=== PATIENT | female | born 1990 | race Caucasian/White ===

== ENCOUNTER 2016-11-24 | Emergency (ER) | payer MEDICAID | END 2016-11-24 17:43 | disposition home or self-care (01) ==

== ENCOUNTER 2016-11-25 12:40 | Emergency (ER) | payer MEDICAID | END 2016-11-25 13:39 | disposition home or self-care (01) | DX: T81.30XA Disruption of wound, unspecified, initial encounter (principal); Y83.8 Other surgical procedures as the cause of abnormal reaction of the patient, or of later complication, without mention of misadventure at the time of the procedure; F17.200 Nicotine dependence, unspecified, uncomplicated ==

== ENCOUNTER 2016-12-08 16:57 | Emergency (ER) | payer MEDICAID ==
[2016-12-08] MEDS ORDERED: HYDROcod/ACETAM 5/325 MG TABLET PO STA (19:00)
[2016-12-08] MEDS ORDERED: HYDROcod/ACETAM 5/325 MG TABLET ONE (19:13)
== END 2016-12-08 19:18 | disposition home or self-care (01) ==
DX: K02.9 Dental caries, unspecified (principal); F17.200 Nicotine dependence, unspecified, uncomplicated
CPT/HCPCS: 99282; 99283; A9270

== ENCOUNTER 2018-02-14 08:00 | Outpatient (CLI) | payer MEDICAID ==
[2018-02-14 19:19] LABS: BILIRUBIN,URINE NEGATIVE (NEGATIVE); GLUCOSE, URINE (UA) NEGATIVE (NEGATIVE); KETONES,URINE (UA) NEGATIVE (NEGATIVE); LEUKOCYTE ESTERASE, URINE NEGATIVE (NEGATIVE); NITRITE,URINE NEGATIVE (NEGATIVE); OCCULT BLOOD,URINE NEGATIVE (NEGATIVE); PROTEIN,URINE NEGATIVE (NEGATIVE); UROBILINOGEN,URINE 0.2 (NORMAL) E.U./dL (NORMAL)
[2018-02-14 19:23] LABS: BASOPHILS # (AUTO) 0.1 10^3/uL (0.0-0.1); BASOPHILS % (AUTO) 1.1 %; EOSINOPHILS # (AUTO) 0.1 10^3/uL (0.0-0.7); EOSINOPHILS % (AUTO) 0.6 %; HGB - HEMOGLOBIN 14.8 g/dL (12.0-16.0); LYMPHOCYTES # (AUTO) 2.9 10^3/uL (1.5-3.5); LYMPHOCYTES % (AUTO) 33.6 %; MEAN CORPUSCULAR HGB CONC 33.3 g/dL (32.0-36.0); MEAN CORPUSCULAR VOLUME 90.2 fL (81.0-99.0); MEAN PLATELET VOLUME 10.1 fL (7.9-10.8); MONOCYTES # (AUTO) 0.6 10^3/uL (0.0-1.0); MONOCYTES % (AUTO) 6.4 %; NEUTROPHILS % (AUTO) 58.3 %; PLT - PLATELET COUNT 240 10^3/uL (130-450); RED BLOOD COUNT 4.91 10^6/uL (4.20-5.40); RED CELL DISTRIBUTION WIDTH 13.7 % (12.0-15.0); WHITE BLOOD COUNT 8.7 x10^3/uL (4.8-10.8)
[2018-02-14 19:53] LABS: CLARITY,URINE CLEAR (CLEAR)
[2018-02-14 21:07] LABS: BACTERIA,URINE Rare /HPF (None Seen); RBC,URINE None Seen /HPF (0-5); SQUAMOUS EPITHELIAL CELL,UR MANY Squamous (<= Few)
[2018-02-15 13:42] LABS: HIV AG/AB 4TH GEN NON-REACTIVE (NON-REACTIVE)
[2018-02-15 13:53] LABS: HEPATITIS B SURFACE ANTIGEN NON-REACTIVE (NON-REACTIVE); HEPATITIS C ANTIBODY NON-REACTIVE (NON-REACTIVE)
== END 2018-02-14 08:01 | disposition home or self-care (01) ==
LOC: LAB.WCP 08:00
PROVIDERS: ATTEND Obstetrics & Gynecology
DX: O26.849 Uterine size-date discrepancy, unspecified trimester (principal); Z11.3 Encounter for screening for infections with a predominantly sexual mode of transmission; Z36.9 Encounter for antenatal screening, unspecified
CPT/HCPCS: 36415; 81001; 81599; 84702; 85025; 86592; 86762; 86803; 86850; 86900; 86901; 87340; 87389; 87491; 87591

== ENCOUNTER 2018-02-14 08:00 | Outpatient (CLI) | payer MEDICAID | END 2018-02-14 08:01 | disposition home or self-care (01) | LOC: LAB.R 08:00 | PROVIDERS: ATTEND Obstetrics & Gynecology | DX: O26.849 Uterine size-date discrepancy, unspecified trimester (principal); Z11.3 Encounter for screening for infections with a predominantly sexual mode of transmission; Z36.9 Encounter for antenatal screening, unspecified | CPT/HCPCS: 87491; 87591 ==

== ENCOUNTER 2018-02-16 15:18 | Outpatient (CLI) | payer MEDICAID | END 2018-02-16 15:19 | disposition home or self-care (01) | LOC: LAB.WCP 15:18 | PROVIDERS: ATTEND Obstetrics & Gynecology | DX: O26.849 Uterine size-date discrepancy, unspecified trimester (principal); Z36.9 Encounter for antenatal screening, unspecified; Z11.3 Encounter for screening for infections with a predominantly sexual mode of transmission | CPT/HCPCS: 36415; 84702 ==

== ENCOUNTER 2018-04-20 07:34 | Outpatient (CLI) | payer MEDICAID | END 2018-04-20 07:35 | disposition home or self-care (01) | LOC: LAB.N 07:34 | PROVIDERS: ATTEND Obstetrics & Gynecology | DX: Z13.79 Encounter for other screening for genetic and chromosomal anomalies (principal) | CPT/HCPCS: 36415; 81599; 82105; 82677; 84702; 86336 ==

== ENCOUNTER 2018-05-23 07:33 | Outpatient (CLI) | payer MEDICAID ==
--- NOTE | 2018-05-23 13:58 | Ultrasound Report ---
Procedure Date: 05/23/2018 Accession Number: [id number] / [id number] Procedure: US - OB Detailed Eval CPT Code: FULL RESULT: EXAM: OB Detailed Eval DATE: 05/23/2018 9:52 AM CLINICAL HISTORY: ENCTR FOR SCREENING TECHNIQUE: Real-time scanning was performed with call center support representative static images obtained. COMPARISON: None LAST MENSTRUAL PERIOD: Unsure US Age: 19 weeks 2 days EFW Hadlock: 283 grams Heart Rate: 154 bpm US EDC: 10/15/2018 BPD Hadlock: 19 weeks 1 days; Mean mm 44 HC Hadlock: 19 weeks 1 days; Mean mm 164 AC Hadlock: 19 weeks 3 days; Mean mm 141 FL Hadlock: 19 weeks 1 days; Mean mm 30 Presentation: Vertex Placental Location: Posterior Cervical Length: 3.4 cm Amniotic Fluid: MORA Subjectively normal cm; MVP 3.7 cm FINDINGS: A single live intrauterine gestation in vertex presentation with a posterior normal-appearing placenta with a three-vessel centrally inserted cord is identified with a heart rate of 154 bpm and subjectively normal amniotic fluid. Due to acoustic windows the following structures were visualized only in a limited fashion and follow-up imaging is suggested: Limited visualization of the nose and lips, cervical spine, thoracic spine, lumbar spine and sacrum. The following anatomic structures were visualized and appear normal: The intracranial contents, including the ventricles and posterior fossa; the heart, including 4 chamber view and outflow tracts, and diaphragm; the abdominal contents, including the stomach, the bilateral kidneys, and urinary bladder, as well as a normal 3-vessel cord insertion; 4 limbs. IMPRESSION: Live intrauterine gestation with a sonographic age of 19 weeks and 2 days. Limited visualization of the spine and facial features as described.
== END 2018-05-23 07:34 | disposition home or self-care (01) ==
LOC: DI 07:33
PROVIDERS: ATTEND Obstetrics & Gynecology
DX: Z36.9 Encounter for antenatal screening, unspecified (principal)
CPT/HCPCS: 76811

== ENCOUNTER 2018-06-27 12:40 | Outpatient (CLI) | payer MEDICAID ==
--- NOTE | 2018-06-27 15:54 | Ultrasound Report ---
Reason: ENCTR FOR OTHER SCREENING FUP Procedure Date: 06/27/2018 Accession Number: [id number] / [id number] Procedure: US - OB F/U or Repeat CPT Code: FULL RESULT: EXAM: COMPLETE OBSTETRICAL ULTRASOUND EXAM DATE: 06/27/2018 02:18 PM. CLINICAL HISTORY: anatomic survey. COMPARISON: 05/23/2018. TECHNIQUE: Real-time sonographic evaluation of the fetus performed by the mr teacher. Multiple business services sales representative static images were saved for review. DATING: Established EGA 24 weeks 2 days with MARLO 10/15/2018 based on initial ultrasound. GENERAL EVALUATION Figueroa . Cardiac activity: 148 bpm. movement: Visualized. Presentation: Cephalic. Placenta: Posterior position. BIOMETRY Bi-Parietal Diameter (BPD): 5.9 cm, 24 weeks 0 days Head Circumference (HC): 22.5 cm, 24 weeks 4 days Abdominal Circumference (AC): 19.5 cm, 24 weeks 1 day Femur Length (FL): 4.4 cm, 24 weeks 2 days Estimated Weight: 677 gm ANATOMY The intracranial structures, profile, face/nose/lips, spine, 4 chamber heart and outflow tracts, stomach, abdominal wall and cord insertion, diaphragm, kidneys, bladder, and extremities were visualized and demonstrate no abnormality. The spine and the facial structures were evaluated and appeared normal. IMPRESSION: 1. Figueroa live intrauterine with gestational age 24 weeks and 2 days based on the initial ultrasound. 2. Estimated weight is within expected limits for assigned dating. 3. Normal spine and facial structures. RADIA
== END 2018-06-27 12:41 | disposition home or self-care (01) ==
LOC: DI 12:40
PROVIDERS: ATTEND Obstetrics & Gynecology
DX: Z36.2 Encounter for other antenatal screening follow-up (principal)
CPT/HCPCS: 76816

== ENCOUNTER 2018-08-02 10:23 | Outpatient (CLI) | payer MEDICAID ==
[2018-08-02 11:51] LABS: HGB - HEMOGLOBIN 12.4 g/dL (12.0-16.0); MEAN CORPUSCULAR HEMOGLOBIN 31.1 pg (27.0-31.0); MEAN CORPUSCULAR HGB CONC 34.6 g/dL (32.0-36.0); MEAN CORPUSCULAR VOLUME 89.7 fL (81.0-99.0); MEAN PLATELET VOLUME 9.3 fL (7.9-10.8); RED BLOOD COUNT 3.98 10^6/uL (4.20-5.40); RED CELL DISTRIBUTION WIDTH 12.5 % (12.0-15.0); WHITE BLOOD COUNT 12.6 x10^3/uL (4.8-10.8)
== END 2018-08-02 10:24 | disposition home or self-care (01) ==
LOC: LAB 10:23
PROVIDERS: ATTEND Obstetrics & Gynecology
DX: Z36.9 Encounter for antenatal screening, unspecified (principal)
CPT/HCPCS: 36415; 82950; 85027; 86850

== ENCOUNTER 2018-09-15 13:52 | Outpatient (CLI) | payer MEDICAID | END 2018-09-15 13:53 | LOC: LAB.R 13:52 | PROVIDERS: ATTEND Obstetrics & Gynecology | DX: Z98.890 Other specified postprocedural states (principal) | CPT/HCPCS: 87081; 87797 ==

== ENCOUNTER 2018-09-27 08:00 | Outpatient (CLI) | payer MEDICAID | END 2018-09-27 08:01 | disposition home or self-care (01) | LOC: LAB.R 08:00 | PROVIDERS: ATTEND Nurse Practitioner Obstetrics & Gynecology | DX: Z3A.36 36 weeks gestation of pregnancy (principal) | CPT/HCPCS: 87081; 87797 ==

== ENCOUNTER 2018-10-04 09:39 | Outpatient (CLI) | payer MEDICAID ==
[2018-10-04 10:02] LABS: BASOPHILS # (AUTO) 0.1 10^3/uL (0.0-0.1); BASOPHILS % (AUTO) 0.6 %; EOSINOPHILS % (AUTO) 0.2 %; HGB - HEMOGLOBIN 12.7 g/dL (12.0-16.0); LYMPHOCYTES # (AUTO) 1.7 10^3/uL (1.5-3.5); LYMPHOCYTES % (AUTO) 16.7 %; MEAN CORPUSCULAR HEMOGLOBIN 29.7 pg (27.0-31.0); MEAN CORPUSCULAR VOLUME 84.9 fL (81.0-99.0); MEAN PLATELET VOLUME 8.6 fL (7.9-10.8); MONOCYTES # (AUTO) 0.6 10^3/uL (0.0-1.0); MONOCYTES % (AUTO) 5.8 %; NEUTROPHILS # (AUTO) 7.9 10^3/uL (1.5-6.6); NEUTROPHILS % (AUTO) 76.7 %; PLT - PLATELET COUNT 231 10^3/uL (130-450); RED BLOOD COUNT 4.29 10^6/uL (4.20-5.40); RED CELL DISTRIBUTION WIDTH 12.9 % (12.0-15.0); WHITE BLOOD COUNT 10.3 x10^3/uL (4.8-10.8)
[2018-10-04 10:14] LABS: CALCIUM 8.8 mg/dL (8.5-10.3); CREATININE 0.5 mg/dL (0.4-1.0)
== END 2018-10-04 09:40 | disposition home or self-care (01) ==
LOC: LAB 09:39
PROVIDERS: ATTEND Obstetrics & Gynecology
DX: Z01.812 Encounter for preprocedural laboratory examination (principal); O34.211 Maternal care for low transverse scar from previous cesarean delivery
CPT/HCPCS: 36415; 80048; 85025; 86850; 86900; 86901

== ENCOUNTER 2018-10-05 06:04 | Inpatient (IN) | payer MEDICAID ==
--- NOTE | 2018-10-04 10:42 | PREOP HISTORY & PHYSICAL ---
DATE OF SERVICE: 10/05/2018 Physician: Carlito Yo MD IDENTIFICATION: The patient is a 28-year-old , female whose EDC is 12 October, making her 38 w eeks 6 days. CHIEF COMPLAINT: Previous section. HISTORY OF PRESENT ILLNESS: The patient has previously had a , is here for repeat . She has had multiple early visits. She is noted to be O positive. PAST MEDICAL HISTORY: Positive for polycystic ovarian disease, hirsutism, anxiety, as well as umbili raul abscess, and hernia. PAST SURGICAL HISTORY: Positive for section x1. CURRENT MEDICATIONS: vitamins. HABITS: The patient denies use of alcohol, tobacco, street or addictive drugs or tetrahydrocannabino l. FAMILY HISTORY: Noncontributory at this time. PHYSICAL EXAMINATION GENERAL: The patient is a well-developed, well-nourished female. She is in no acute distress. VITAL SIGNS: Stable. HEENT: Pupils are equal and round. Extraocular muscles are intact. Thyroid is not palpably enlarge d. HEART: Regular rate and rhythm without murmurs. LUNGS: Lung elizabeth are clear without rales or wheezes. BACK: No spinal or CVA tenderness noted. ABDOMEN: Shows well-healed previous scar from her section. Fundal height is 38 cm, vertex. heart rate is 155. PELVIS: Cervical examination is deferred at this time. IMPRESSION: A 28-year-old female, 38 weeks and 6 days, who is scheduled for section f or tomorrow. PLAN: Will perform repeat low transverse section. She does not desire any tubal ligation a t this time. Risks and benefits have been explained to the patient including those, but not limited to bleeding, infection, injury to pelvic organs, which include the uterus, tubes, ovaries, bowel, bladimir dder and ureter. She is aware of the potential for DVT with PE as well as postop adhesions, which co uld cause pain, bowel obstruction and infertility. TD: 10/04/2018 09:40
[2018-10-05] MEDS ORDERED: LACTATED RINGERS 1,000 ML IV ONE ×3 (06:27→09:24)
[2018-10-05] MEDS ORDERED: SODIUM CHLORIDE FLUSH 0.9% 10 ML SYRINGE ONE (06:27)
[2018-10-05] MEDS ORDERED: CITRIC ACID/SODIUM CITRATE 15 ML UDC PO ONE ×2 (06:50→08:11)
[2018-10-05] MEDS: LACTATED RINGERS 1,000 ML IV SCH ×4 (06:54→17:49)
--- NOTE | 2018-10-05 07:54 | ANESTHESIA ---
Pre-Anesthesia VS, & Labs - Diagnosis term previous c section - Procedure c section Vital Signs: Temp Pulse Resp BP Pulse Ox 36.5 C 75 16 120/71 99 10/05/18 07:00 10/05/18 07:00 10/05/18 07:00 10/05/18 07:00 10/05/18 07:00 Height 5 ft 4 in Body Mass Index 36.8 - NPO >8 hours - Is Patient ?: Yes Home Medications and Allergies Active Medications Lactated Ringer's (Lr) 1,000 mls @ 150 mls/hr IV .Q6H40M ISHA Last Admin: 10/05/18 06:54 Dose: 150 mls/hr Albuterol Sulfate [Proair Hfa] 8.5 gm IH QID PRN 08/17/15 Allergies/Adverse Reactions: Allergies Allergy/AdvReac Type Severity Reaction Status Date / Time amoxicillin Allergy Respiratory Verified 01/05/16 17:58 Penicillins Allergy Respiratory Verified 01/05/16 17:58 Anes History & Medical History - Anesthetic History Anesthesia Complications: reports: No previous complications Family history of Anesthesia Complications: Denies Family history of Malignant Hyperthermia: Denies - Medical History Cardiovascular: reports: None Pulmonary: reports: Asthma Gastrointestinal: reports: None Urinary: reports: None Musculoskeletal: reports: None Endocrine/Autoimmune: reports: None Blood Disorders: reports: None Smoking Status: Current every day smoker - Surgical History General: Hiatal hernia repair Gynecologic: section Exam General: Alert, Oriented x3, Cooperative, No acute distress Dental: Dentures full Upper Mouth Openin Fingerbreadth Neck Mobility: Normal Mallampati classification: II Thyromental Distance: 4-6 cm Respiratory: Rhonchi Cardiovascular: Regular rate, Normal S1, Normal S2, No murmurs Mental/Cognitive Status: Alert/Oriented X3, Normal for patient Cognitive Status: Within normal limits Plan Anesthesia Type: Spinal Consent for Procedure(s) Verified and Reviewed: Yes Code Status: Attempt Resuscitation ASA classification: 2-Mild systemic disease Is this case an emergency?: No
[2018-10-05] MEDS ORDERED: CLINDAMYCIN 600 MG/50 ML 100 ML IV ONE (08:56)
[2018-10-05] MEDS ORDERED: CLINDAMYCIN 900 MG/50 ML 50 ML IV SCH (09:00)
[2018-10-05] MEDS ORDERED: PHENYLEPHRINE 50 MG/5 ML VIAL IV ONE (09:45)
[2018-10-05] MEDS ORDERED: KETOROLAC 30 MG/ML VIAL IVP ONE (09:45)
[2018-10-05] MEDS ORDERED: ONDANSETRON 4 MG/2 ML VIAL IVP ONE (09:45)
[2018-10-05] MEDS ORDERED: ePHEDrine 50 MG/ML VIAL IVP ONE (09:45)
[2018-10-05] MEDS ORDERED: MORPHINE PF 5 MG/10 ML AMP EP ONE (09:45)
[2018-10-05] MEDS ORDERED: DEXAMETHASONE 4 MG/ML VIAL IVP ONE (09:45)
[2018-10-05] MEDS ORDERED: ONDANSETRON 4 MG/2 ML VIAL IVP PRN (10:31)
[2018-10-05] MEDS ORDERED: diphenhydrAMINE INJ 50 MG/ML VIAL IVP PRN (10:31)
--- NOTE | 2018-10-05 10:41 | OPERATIVE REPORT ---
Operative Report - General Admit Date: 10/05/18 Procedure Date: 10/05/18 Planned Procedure: Repeat LTC/S Pre-Op Diagnosis: 39.0 weeks previous C/S Procedure Performed: Same Post Op Diagnosis: Same. Live male infant, Apgars 9/10 - Procedure Note Primary Surgeon: Carlito Yo MD Secondary Surgeon: Neela Pace DO Anesthesia Provider: Adam Gates CRNA Anesthesia Technique: Spinal Pathology: None IV Fluids (mL): 1,200 Estimated Blood Loss (mL): 300 Urine Output (mL): 130 Complications: None - Other Other Information/Narrative: [id number]
[2018-10-05] MEDS: IBUPROFEN 800 MG TABLET PO SCH ×2 (11:35→18:38)
[2018-10-05] MEDS: ACETAMINOPHEN 500 MG TABLET PO SCH ×3 (11:35→21:57)
[2018-10-05] MEDS: KETOROLAC 30 MG/ML VIAL IV SCH ×3 (11:36→21:57)
[2018-10-05] MEDS ORDERED: NALBUPHINE 10 MG/ML AMP IVP ONE (13:10)
[2018-10-05] MEDS: SODIUM CHLORIDE FLUSH 0.9% 10 ML SYRINGE IVP PRN ×2 (13:42→15:58)
[2018-10-05] MEDS: SIMETHICONE CHEW 80 MG TABLET PO SCH (13:43)
[2018-10-05] MEDS: oxyCODONE 5 MG TABLET PO PRN ×2 (13:43→19:09)
--- NOTE | 2018-10-05 14:30 | OPERATIVE REPORT ---
DATE OF SERVICE: 10/05/2018 Physician: Carlito Yo MD PREOPERATIVE DIAGNOSES 1. 39.0 weeks. 2. Previous section. POSTOPERATIVE DIAGNOSES 1. 39.0 weeks. 2. Previous section. PROCEDURE PERFORMED: Repeat low transverse section. SURGEON: Dr. Carlito Yo. CONFECTIONERY MAKER: Dr. Neela Pace. ANESTHESIA TYPE/PROVIDER: Spinal/Adam Gates CRNA. ESTIMATED BLOOD LOSS: 300 mL IV FLUIDS: 1200 mL URINE OUTPUT: 130 mL FINDINGS: Upon entering the abdominal cavity, there was a live male infant, vertex presentation, clear amniotic fluid. The infant was noted to have Apgars of 9 and 10. PROCEDURE: Following adequate spinal anesthesia, patient was placed in the supine position with a roll on her right hip. A Hu catheter was placed under sterile conditions. She was then prepped and draped in the usual fashion. A timeout was performed in which the patient was identified and concerns addressed. Of note was the fact that SHE HAD A PENICILLIN ALLERGY, so she was given clindamycin 900 mg IV. A Pfannenstiel incision was carried down the subcutaneous tissue to the fascia, the fascia incised transversely, then used both blunt and sharp dissection to free the rectus abdominis. There was evidence of adhesions from previous section. The peritoneum was entered high. Care was taken to avoid any injury to bowel or bladder. The omentum was encountered at this time and dissected free from the peritoneum. At this point, a bladder flap was developed using Metzenbaum scissors, and then a low transverse uterine incision was accomplished using a #10 blade and bandage scissors. Clear amniotic fluid was encountered, and at this point, the membranes were ruptured. The head of the infant was lifted out of the pelvis. The remainder of the was delivered without difficulty. The cord was doubly clamped and divided. The oropharynx was bulb suctioned. The was handed to the nursery team that was standing by. Cord blood samples were obtained. The uterus was exteriorized, wrapped in a moist lap, and then the placenta was delivered and the anterior portion of the uterus was cleansed with a dry lap. The cervix was then dilated with ring forceps, and then the incision was closed using #0 Vicryl in a running locking suture with an imbricating Lembert layer of #0 Vicryl. The cul-de-sac was then irrigated and then uterus delivered back into the abdominal cavity. The gutters were likewise irrigated and then the omentum, which was adhered to the peritoneum, was divided using electrocautery. This was inspected for bleeding; none was noted. The uterine incision was once again inspected. No further bleeding was noted. The peritoneum was closed utilizing 2-0 Vicryl and the rectus reapproximated with 2-0 Vicryl. The fascia was inspected and there was no evidence of bleeding, so it was closed utilizing looped PDS in a running suture. The subcutaneous tissue was irrigated and then closed with interrupted 2-0 Vicryl. The incision itself was closed utilizing 4-0 Monocryl, and then a wound VAC was placed. There was evidence of good seal. The uterus was then expressed. No further clots were removed. The patient tolerated procedure well and was taken to recovery in stable condition. Sponge and needle counts were correct. TD: 10/05/2018 10:57 MTDD
[2018-10-05] MEDS: SODIUM CHLORIDE FLUSH 0.9% 10 ML SYRINGE IVP SCH (15:58)
[2018-10-05] MEDS: NALBUPHINE 10 MG/ML AMP IVP PRN ×2 (15:58→20:26)
[2018-10-05] MEDS: ALBUTEROL NEB 2.5 MG/3 ML INH PRN (16:22)
[2018-10-05] MEDS: DOCUSATE SODIUM 100 MG CAPSULE PO SCH (20:25)
[2018-10-06] MEDS: SODIUM CHLORIDE FLUSH 0.9% 10 ML SYRINGE IVP SCH ×2 (00:09→04:13)
[2018-10-06] MEDS: oxyCODONE 5 MG TABLET PO PRN ×6 (02:47→22:33)
[2018-10-06] MEDS: KETOROLAC 30 MG/ML VIAL IV SCH (04:13)
[2018-10-06] MEDS: SIMETHICONE CHEW 80 MG TABLET PO SCH ×4 (05:37→18:39)
[2018-10-06 06:17] LABS: BASOPHILS % (AUTO) 0.3 %; EOSINOPHILS % (AUTO) 0.4 %; LYMPHOCYTES # (AUTO) 1.9 10^3/uL (1.5-3.5); LYMPHOCYTES % (AUTO) 21.5 %; MEAN CORPUSCULAR HEMOGLOBIN 29.6 pg (27.0-31.0); MEAN CORPUSCULAR HGB CONC 33.9 g/dL (32.0-36.0); MEAN CORPUSCULAR VOLUME 87.5 fL (81.0-99.0); MEAN PLATELET VOLUME 9.4 fL (7.9-10.8); MONOCYTES # (AUTO) 0.8 10^3/uL (0.0-1.0); MONOCYTES % (AUTO) 9.7 %; NEUTROPHILS # (AUTO) 5.9 10^3/uL (1.5-6.6); NEUTROPHILS % (AUTO) 68.1 %; PLT - PLATELET COUNT 176 10^3/uL (130-450); RED BLOOD COUNT 3.38 10^6/uL (4.20-5.40); RED CELL DISTRIBUTION WIDTH 13.2 % (12.0-15.0); WHITE BLOOD COUNT 8.7 x10^3/uL (4.8-10.8)
[2018-10-06] MEDS: ACETAMINOPHEN 500 MG TABLET PO SCH ×3 (06:38→22:33)
--- NOTE | 2018-10-06 08:40 | PROVIDER PROGRESS NOTE ---
Subjective - General Admit Date: 10/05/18 Procedure Date: 10/05/18 Post Op Days: 1 Procedure Performed: repeat LTC/S - Review of Systems Wound/Incisions: positive: Dressing dry and intact General: positive: No symptoms (Pain 02/08 adiquit) Gastrointestinal: positive: Flatus Genitourinary: positive: No symptoms (voiding) Objective - Patient Data Reviewed Vital Signs: Yes Vital Signs: Vital Signs x48h Temp Pulse Resp BP Pulse Ox 10/06/18 04:08 36.7 C 63 16 113/62 99 10/06/18 01:28 107/52 L Weight: Weight 10/04/18 10/05/18 10/06/18 23:59 23:59 23:59 Weight (kg) 92.079 kg Intake & Output: Intake and Output Totals x24h 10/04/18 10/05/18 10/06/18 23:59 23:59 23:59 Intake Total 2437.5 1525 Output Total 1575 560 Balance 862.5 965 - Lab Results Lab Results: 10/06/18 05:59 Other Lab Results: Lab Results x24hrs 10/06/18 Range/Units 05:59 WBC 8.7 (4.8-10.8) x10^3/uL RBC 3.38 L (4.20-5.40) 10^6/uL Hgb 10.0 L (12.0-16.0) g/dL Hct 29.6 L (37.0-47.0) % MCV 87.5 (81.0-99.0) fL MCH 29.6 (27.0-31.0) pg MCHC 33.9 (32.0-36.0) g/dL RDW 13.2 (12.0-15.0) % Plt Count 176 (130-450) 10^3/uL MPV 9.4 (7.9-10.8) fL Neut # (Auto) 5.9 (1.5-6.6) 10^3/uL Lymph # (Auto) 1.9 (1.5-3.5) 10^3/uL Refugio # (Auto) 0.8 (0.0-1.0) 10^3/uL Eos # (Auto) 0.0 (0.0-0.7) 10^3/uL Baso # (Auto) 0.0 (0.0-0.1) 10^3/uL Absolute Nucleated RBC 0.00 x10^3/uL Nucleated RBC % 0.0 /100WBC - Current Medications Current Medications: Current Medications Generic Name Dose Route Start Last Admin Trade Name Freq PRN Reason Stop Dose Admin Acetaminophen 1,000 mg 10/05/18 11:00 10/06/18 06:38 Tylenol PO 1,000 mg Q8H ISHA Administration Albuterol 2.5 mg 10/05/18 13:11 10/05/18 16:22 INH 2.5 mg RTQ4H PRN Administration Wheezing Diphenhydramine HCl 25 mg 10/05/18 10:31 10/05/18 11:28 Benadryl Inj IVP 25 mg Q6H PRN Administration ITCHING Docusate Sodium 100 mg 10/05/18 21:00 10/05/18 20:25 Colace 100mg Capsule PO 100 mg BID ISHA Administration Lactated Ringer's 1,000 mls @ 150 mls/hr 10/05/18 06:47 10/06/18 00:05 Lr IV Infused .Q6H40M ISHA Infusion Lactated Ringer's 1,000 mls @ 100 mls/hr 10/05/18 11:00 10/05/18 14:27 Lr IV Not Given .Q10H ISHA Ibuprofen 800 mg 10/05/18 11:00 10/05/18 18:38 Motrin PO Not Given Q6H ISHA Nalbuphine HCl 2 mg 10/05/18 13:15 10/05/18 20:26 Nubain IVP 2 mg Q2H PRN Administration ITCHING Oxycodone HCl 5 mg 10/05/18 10:31 10/06/18 06:38 Roxicodone PO 5 mg Q4HR PRN Administration PAIN Simethicone 80 mg 10/05/18 14:00 10/06/18 05:37 Mylicon PO Not Given TID ISHA Sodium Chloride 10 ml 10/05/18 10:31 10/05/18 15:58 Normal Saline Flush 0.9% IVP 10 ml PRN PRN Administration NEEDED PER PROVIDER ORDERS Sodium Chloride 10 ml 10/05/18 17:00 10/06/18 04:13 Normal Saline Flush 0.9% IVP 10 ml 0100,0900,1700 [facility] Administration - Physical Exam Wound/Incisions: positive: Dressing dry and intact (wound vac functioning well) Respiratory: positive: Chest non-tender, No respiratory distress, Wheezes (at bases) Cardiovascular: positive: Regular rate & rhythm, No murmur, No gallop Abdomen: positive: Non-tender, Nml bowel sounds, No distention, Mass (u-2) Back: negative: CVA tenderness (R), CVA tenderness (L) Extremities: negative: Calf tenderness, Charissa's sign/cords Impression/Plan - Problem List Problem List: POD #1 progressing well HX of asthma. exposure to son with URI. anticipate discharge in the AM
[2018-10-06] MEDS: IBUPROFEN 800 MG TABLET PO SCH ×2 (09:51→18:40)
[2018-10-06] MEDS: DOCUSATE SODIUM 100 MG CAPSULE PO SCH ×2 (09:51→22:33)
[2018-10-06] MEDS: ALBUTEROL NEB 2.5 MG/3 ML INH PRN (14:46)
[2018-10-07] MEDS: IBUPROFEN 800 MG TABLET PO SCH ×2 (00:34→06:30)
[2018-10-07] MEDS: oxyCODONE 5 MG TABLET PO PRN ×3 (02:33→11:14)
[2018-10-07] MEDS: SIMETHICONE CHEW 80 MG TABLET PO SCH (02:34)
[2018-10-07] MEDS: ACETAMINOPHEN 500 MG TABLET PO SCH (06:31)
[2018-10-07 08:38] VITALS: BP 103/61
--- NOTE | 2018-10-07 09:20 | PROVIDER PROGRESS NOTE ---
Subjective - General Admit Date: 10/05/18 Procedure Date: 10/05/18 Post Op Days: 2 Procedure Performed: repeat LTC/S - Review of Systems Wound/Incisions: positive: Dressing dry and intact (wound vac functioning well) General: positive: No symptoms (Pain 4/10 adiquit looking forward to going home) Pulmonary: positive: No symptoms Gastrointestinal: positive: Flatus (no stool yet) Genitourinary: positive: No symptoms (voiding) Objective - Patient Data Reviewed Vital Signs: Yes Vital Signs: Vital Signs x48h Temp Pulse Resp BP Pulse Ox 10/07/18 08:37 36.3 C L 69 16 103/61 97 Weight: Weight 10/05/18 10/06/18 10/07/18 23:59 23:59 23:59 Weight (kg) 92.079 kg Intake & Output: Intake and Output Totals x24h 10/05/18 10/06/18 10/07/18 23:59 23:59 23:59 Intake Total 2437.5 1525 Output Total 1575 810 Balance 862.5 715 - Lab Results Lab Results: 10/06/18 05:59 - Current Medications Current Medications: Current Medications Generic Name Dose Route Start Last Admin Trade Name Freq PRN Reason Stop Dose Admin Acetaminophen 1,000 mg 10/05/18 11:00 10/07/18 06:31 Tylenol PO 1,000 mg Q8H ISHA Administration Albuterol 2.5 mg 10/05/18 13:11 10/06/18 14:46 INH 2.5 mg RTQ4H PRN Administration Wheezing Diphenhydramine HCl 25 mg 10/05/18 10:31 10/05/18 11:28 Benadryl Inj IVP 25 mg Q6H PRN Administration ITCHING Docusate Sodium 100 mg 10/05/18 21:00 10/06/18 22:33 Colace 100mg Capsule PO 100 mg BID ISHA Administration Lactated Ringer's 1,000 mls @ 150 mls/hr 10/05/18 06:47 10/06/18 00:05 Lr IV Infused .Q6H40M ISHA Infusion Lactated Ringer's 1,000 mls @ 100 mls/hr 10/05/18 11:00 10/05/18 14:27 Lr IV Not Given .Q10H ISHA Ibuprofen 800 mg 10/05/18 11:00 10/07/18 06:30 Motrin PO 800 mg Q6H ISHA Administration Nalbuphine HCl 2 mg 10/05/18 13:15 10/05/18 20:26 Nubain IVP 2 mg Q2H PRN Administration ITCHING Oxycodone HCl 5 mg 10/05/18 10:31 10/07/18 06:30 Roxicodone PO 5 mg Q4HR PRN Administration PAIN Simethicone 80 mg 10/05/18 14:00 10/07/18 02:34 Mylicon PO 80 mg TID ISHA Administration Sodium Chloride 10 ml 10/05/18 10:31 10/05/18 15:58 Normal Saline Flush 0.9% IVP 10 ml PRN PRN Administration NEEDED PER PROVIDER ORDERS Sodium Chloride 10 ml 10/05/18 17:00 10/06/18 04:13 Normal Saline Flush 0.9% IVP 10 ml 0100,0900,1700 ISHA Administration - Physical Exam Wound/Incisions: positive: Dressing dry and intact (wound Vac functioning) General Appearance: positive: No acute distress, Alert Respiratory: positive: Chest non-tender, No respiratory distress, Wheezes (base of the right) Cardiovascular: positive: Regular rate & rhythm, No murmur Abdomen: positive: Non-tender, No organomegaly, Nml bowel sounds, No distention Back: negative: CVA tenderness (R), CVA tenderness (L) Extremities: negative: Calf tenderness, Charissa's sign/cords Impression/Plan - Problem List Problem List: POD # 2 going home. Reviewed Breast feeding. encouraged to continue. RTC one week for wound vac. Discharge medications Oxycodone 5 mg #20 Motrin 800 mg Colace 100 mg
--- NOTE | 2018-10-07 09:30 | Discharge Plan ---
Discharge Plan Disposition: 01 Home, Self Care Condition: Good Diet: Regular Activity Restrictions: pelvic rest Shower Restrictions: No Driving Restrictions: Yes (donot drive while on Oxycodone) No Smoking: If you smoke, Please STOP! Call for help. Follow-up with: Jill Rodriguez ARNP [Primary Care Provider] -
--- NOTE | 2018-10-07 09:49 | DISCHARGE SUMMARY ---
Physician: Carlito Yo MD DATE OF ADMISSION: 10/05/2018 DATE OF DISCHARGE: 10/07/2018 ADMITTING DIAGNOSES 1. 39.0 weeks. 2. Previous section. 3. Asthma. DISCHARGE DIAGNOSES 1. 39.0 weeks. 2. Previous section. 3. Asthma. PROCEDURE: Repeat low transverse section. PRESENTING HISTORY: Patient is a 28-year-old G2, P1 female who presented at 39.0 weeks. She had a previous section. Her course had been unremarkable. She was noted to be O positive. She was GBS positive. She also has a history of polycystic ovary disease, anxiety, as well as hirsutism. LABORATORIES: Preop hemoglobin was 12.7, hematocrit was 36.4, platelets were 231. White count was 10.3. Postoperatively, her white count fell to 8.7, hemoglobin was 10.0, hematocrit was 29.6, platelets were 176. Her electrolytes preop were sodium 133, potassium 3.8, her glucose was 102. HOSPITAL COURSE: Patient was admitted, taken to the operating room, at which time a repeat was performed. A live, male infant with Apgars 9 and 10 was delivered. He weighed 7 pounds even. Her postoperative course was only significant in that she had some asthma that is reactivated, requiring nebs and inhalers. She is being discharged to home today on medications of: 1. Oxycodone 5 mg #20. 2. Motrin 800 mg #30. 3. Colace 100 mg #30. She was instructed to follow up in the clinic in 1 week. She was also instructed to monitor breasts for signs of infection. She has been informed that is not adequate contraception. She was encouraged to breastfeed for the benefits, for both herself and her infant. TD: 10/07/2018 09:36 ALESSANDRA
[2018-10-07] MEDS: ALBUTEROL NEB 2.5 MG/3 ML INH PRN (10:16)
[2018-10-07] MEDS: DOCUSATE SODIUM 100 MG CAPSULE PO SCH (11:14)
[2018-10-07] MEDS: LACTATED RINGERS 1,000 ML IV SCH (11:55)
[2018-10-07] MEDS: SODIUM CHLORIDE FLUSH 0.9% 10 ML SYRINGE IVP SCH (11:56)
== END 2018-10-07 11:46 | disposition home or self-care (01) | DRG 788 ==
LOC: FBP 06:04
PROVIDERS: ADMIT Obstetrics & Gynecology; ATTEND Obstetrics & Gynecology
PROC: 10D00Z1 Extraction of Products of Conception, Low, Open Approach (ICD-10-PCS; principal; 2018-10-05 09:15)
DX: O34.219 Maternal care for unspecified type scar from previous cesarean delivery (principal); O99.824 Streptococcus B carrier state complicating childbirth; O99.52 Diseases of the respiratory system complicating childbirth; J45.998 Other asthma; O99.344 Other mental disorders complicating childbirth; F41.9 Anxiety disorder, unspecified; O99.89 Other specified diseases and conditions complicating pregnancy, childbirth and the puerperium; E28.2 Polycystic ovarian syndrome; O99.284 Endocrine, nutritional and metabolic diseases complicating childbirth; L68.0 Hirsutism; O99.334 Smoking (tobacco) complicating childbirth; F17.210 Nicotine dependence, cigarettes, uncomplicated; Z3A.39 39 weeks gestation of pregnancy; Z37.0 Single live birth
CPT/HCPCS: 36415; 85025; 94640

== ENCOUNTER 2018-11-07 08:29 | Emergency (ER) | payer MEDICAID ==
[2018-11-07] MEDS ORDERED: BENZONATATE 100 MG CAPSULE PO STA (08:50)
[2018-11-07] MEDS ORDERED: BENZOCAINE/MENTHOL LOZENGE MM STA (08:50)
--- NOTE | 2018-11-07 08:52 | ED Physician Documentation ---
History of Present Illness - Stated complaint Stated Complaint: THROAT PX - Chief complaint Chief Complaint: Heent - Additonal information Additional information: hx from pt 1 m pp not breast feeding sore throat cough sweats X 1 days Review of Systems Constitutional: reports: Sweats. denies: Fever, Chills Nose: denies: Congestion Throat: reports: Sore throat Cardiac: denies: Chest pain / pressure Respiratory: reports: Cough GI: denies: Vomiting, Diarrhea Skin: denies: Rash PD PAST MEDICAL HISTORY - Past Medical History Cardiovascular: None Respiratory: Asthma Endocrine/Autoimmune: None GI: None FRUIT STUFFER: None : None HEENT: None Psych: Anxiety Musculoskeletal: None - Past Surgical History Past Surgical History: Yes General: Hiatal hernia repair /FRUIT STUFFER: section - Present Medications Home Medications: Ambulatory Orders Medication Instructions Recorded Confirmed Benzonatate [Tessalon Perle] 100 mg PO TID PRN #20 capsule 11/07/18 Dextromethorphan/Benzocaine 1 each PO Q4H PRN #20 lozenge 11/07/18 [Cepacol Sorethroat-Cough Tianna] Pnv95/Ferrous Fumarate/FA 1 each PO DAILY 11/07/18 11/07/18 [ Formula] - Allergies Allergies/Adverse Reactions: Allergies Allergy/AdvReac Type Severity Reaction Status Date / Time amoxicillin Allergy Respiratory Verified 11/07/18 08:44 Penicillins Allergy Respiratory Verified 11/07/18 08:44 - Social History Does the pt smoke?: Yes Smoking Status: Current every day smoker Does the pt drink ETOH?: No Does the pt have substance abuse?: No - Immunizations Immunizations are current?: Yes PD ED PE NORMAL - Vitals Vital signs reviewed: Yes - General General: Alert and oriented X 3 - HEENT HEENT: PERRL, Ears normal, Moist mucous membranes. No: Pharynx benign (erythema and swelling no exudate trismus or POLE CLASSIFIER) - Neck Neck: Supple, no meningeal sign - Cardiac Cardiac: RRR - Respiratory Respiratory: No respiratory distress, Clear bilaterally - Abdomen Abdomen: Non tender - Neuro Neuro: Alert and oriented X 3 Results - Vitals Vitals: Vital Signs - 24 hr 11/07/18 08:35 Temperature 36.2 C L Heart Rate 90 Respiratory 18 Rate Blood Pressure 124/92 H O2 Saturation 100 Oxygen O2 Source Room air - Labs Labs: Laboratory Tests 11/07/18 11/07/18 08:40 08:40 Influenza A (Rapid) Negative Influenza B (Rapid) Negative Group A Strep Rapid Negative Departure - Departure Disposition: 01 Home, Self Care Clinical Impression: Viral syndrome Condition: Good Instructions: ED Viral Syndrome Prescriptions: Benzonatate [Tessalon Perle] 100 mg PO TID PRN #20 capsule PRN Reason: Cough Dextromethorphan/Benzocaine [Cepacol Sorethroat-Cough Tianna] 1 each PO Q4H PRN #20 lozenge PRN Reason: sore throat and cough Comments: The rapid strep was negative - an official throat culture will also be run and the ER staff will call you if it is positive and antibiotics are neded The influenza swabs were negative as well. This does not make you any less ill but means antibiotics will not help. So I have prescribed medications to ease your symptoms
[2018-11-07 10:40] VITALS: BP 120/88
== END 2018-11-07 10:34 | disposition home or self-care (01) ==
LOC: ED 08:29
DX: B34.9 Viral infection, unspecified (principal); F17.200 Nicotine dependence, unspecified, uncomplicated
CPT/HCPCS: 87070; 87275; 87276; 87430; 99283; A9270

== ENCOUNTER 2018-11-16 08:00 | Outpatient (CLI) | payer MEDICAID | END 2018-11-16 23:59 | disposition home or self-care (01) | LOC: LAB.R 08:00 | PROVIDERS: ATTEND Nurse Practitioner Obstetrics & Gynecology | DX: Z11.3 Encounter for screening for infections with a predominantly sexual mode of transmission (principal) | CPT/HCPCS: 87491; 87591 ==

== ENCOUNTER 2018-12-02 14:41 | Emergency (ER) | payer MEDICAID ==
[2018-12-02 14:55] VITALS: BP 140/87
[2018-12-02 15:26] LABS: BASOPHILS # (AUTO) 0.1 10^3/uL (0.0-0.1); EOSINOPHILS # (AUTO) 0.1 10^3/uL (0.0-0.7); EOSINOPHILS % (AUTO) 0.9 %; HGB - HEMOGLOBIN 13.4 g/dL (12.0-16.0); LYMPHOCYTES # (AUTO) 2.9 10^3/uL (1.5-3.5); LYMPHOCYTES % (AUTO) 38.6 %; MEAN CORPUSCULAR HEMOGLOBIN 28.1 pg (27.0-31.0); MEAN CORPUSCULAR HGB CONC 33.8 g/dL (32.0-36.0); MEAN CORPUSCULAR VOLUME 83.1 fL (81.0-99.0); MEAN PLATELET VOLUME 8.8 fL (7.9-10.8); MONOCYTES # (AUTO) 0.6 10^3/uL (0.0-1.0); MONOCYTES % (AUTO) 7.4 %; NEUTROPHILS # (AUTO) 3.9 10^3/uL (1.5-6.6); NEUTROPHILS % (AUTO) 52.1 %; PLT - PLATELET COUNT 279 10^3/uL (130-450); RED BLOOD COUNT 4.78 10^6/uL (4.20-5.40); RED CELL DISTRIBUTION WIDTH 15.2 % (12.0-15.0); WHITE BLOOD COUNT 7.5 x10^3/uL (4.8-10.8)
[2018-12-02 15:43] LABS: ALBUMIN 3.8 g/dL (3.2-5.5); ALBUMIN/GLOBULIN RATIO 1.2 (1.0-2.2); BILIRUBIN,TOTAL 0.4 mg/dL (0.2-1.0); CREATININE 0.7 mg/dL (0.4-1.0)
--- NOTE | 2018-12-02 16:55 | ED Physician Documentation ---
PD HPI FEMALE - Stated complaint Stated Complaint: FEM - Chief complaint Chief Complaint: Abd Pain - Additional information Additional information: 28-year-old female presents the emergency department with pelvic pain and vaginal bleeding since November 15, 2018. The patient recently had an IUD placed on November 15 and since then has had ongoing pelvic pain and vaginal bleeding. Today, the patient reports feeling weak. There is been no change in the bleeding and the patient denies any discharge or hemorrhage. Symptoms are described as moderate. No other associated symptoms. No relieving factors Review of Systems Constitutional: reports: Fatigue. denies: Fever, Chills Eyes: denies: Discharge Ears: denies: Ear pain Nose: denies: Congestion Throat: denies: Sore throat Cardiac: denies: Chest pain / pressure Respiratory: denies: Cough GI: reports: Abdominal Pain. 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 - Present Medications Home Medications: Ambulatory Orders Medication Instructions Recorded Confirmed Benzonatate [Tessalon Perle] 100 mg PO TID PRN #20 capsule 11/07/18 Dextromethorphan/Benzocaine 1 each PO Q4H PRN #20 lozenge 11/07/18 [Cepacol Sorethroat-Cough Tianna] Pnv95/Ferrous Fumarate/FA 1 each PO DAILY 11/07/18 11/07/18 [ Formula] - Allergies Allergies/Adverse Reactions: Allergies Allergy/AdvReac Type Severity Reaction Status Date / Time amoxicillin Allergy Respiratory Verified 11/07/18 08:44 Penicillins Allergy Respiratory Verified 11/07/18 08:44 - Social History Does the pt smoke?: Yes Smoking Status: Current every day smoker Does the pt drink ETOH?: No Does the pt have substance abuse?: No - Immunizations Immunizations are current?: Yes - POLST Patient has POLST: No PD ED PE NORMAL - General General: Alert and oriented X 3, No acute distress - HEENT HEENT: Atraumatic, PERRL, EOMI, Ears normal - Neck Neck: Supple, no meningeal sign - Cardiac Cardiac: RRR, Strong equal pulses - Respiratory Respiratory: No respiratory distress - Abdomen Abdomen: Soft, Non tender - Back Back: No CVA TTP - Derm Derm: Normal color - Extremities Extremities: No deformity - Neuro Neuro: Alert and oriented X 3, Normal speech - Psych Psych: Normal affect Results - Vitals Vitals: Vital Signs - 24 hr 12/02/18 14:53 Temperature 36.8 C Heart Rate 79 Respiratory 18 Rate Blood Pressure 140/87 H O2 Saturation 100 Oxygen O2 Source Room air - Labs Labs: Laboratory Tests 12/02/18 12/02/18 12/02/18 15:13 15:13 17:08 WBC 7.5 RBC 4.78 Hgb 13.4 Hct 39.7 MCV 83.1 MCH 28.1 MCHC 33.8 RDW 15.2 H Plt Count 279 MPV 8.8 Neut # (Auto) 3.9 Lymph # (Auto) 2.9 [place] # (Auto) 0.6 Eos # (Auto) 0.1 Baso # (Auto) 0.1 Absolute Nucleated RBC 0.00 Nucleated RBC % 0.1 Sodium 137 Potassium 3.3 L Chloride 103 Carbon Dioxide 28 Anion Gap 6.0 BUN 12 Creatinine 0.7 Estimated GFR (MDRD) 101 Glucose 102 H Calcium 9.0 Total Bilirubin 0.4 AST 19 ALT 15 Alkaline Phosphatase 76 Total Protein 7.0 Albumin 3.8 Globulin 3.2 Albumin/Globulin Ratio 1.2 Lipase 45 Urine Color YELLOW Urine Clarity CLEAR Urine pH 7.0 Ur Specific [place] 1.015 Urine Protein NEGATIVE Urine Glucose (UA) NEGATIVE Urine Ketones NEGATIVE Urine Occult Blood TRACE-INTA Urine Nitrite NEGATIVE Urine Bilirubin NEGATIVE Urine Urobilinogen 0.2 (NORMAL) Ur Leukocyte Esterase NEGATIVE Ur Microscopic Review NOT INDICATED Urine Culture Comments NOT INDICATED Urine HCG, Qual 12/02/18 17:08 WBC RBC Hgb Hct MCV MCH MCHC RDW Plt Count MPV Neut # (Auto) Lymph # (Auto) [place] # (Auto) Eos # (Auto) Baso # (Auto) Absolute Nucleated RBC Nucleated RBC % Sodium Potassium Chloride Carbon Dioxide Anion Gap BUN Creatinine Estimated GFR (MDRD) Glucose Calcium Total Bilirubin AST ALT Alkaline Phosphatase Total Protein Albumin Globulin Albumin/Globulin Ratio Lipase Urine Color Urine Clarity Urine pH Ur Specific [place] 1.015 Urine Protein Urine Glucose (UA) Urine Ketones Urine Occult Blood Urine Nitrite Urine Bilirubin Urine Urobilinogen Ur Leukocyte Esterase Ur Microscopic Review Urine Culture Comments Urine HCG, Qual NEGATIVE - Rads (name of study) US pelvic Radiology: Final report received, See rad report (IMPRESSION: Endometrium obscured by IUD. No obvious intrauterine mass or fluid collection. Otherwise normal pelvic ultrasound. ) PD MEDICAL DECISION MAKING - ED course ED course: The patient declined a pelvic exam at this point and would prefer to wait until she sees her [employer] in follow-up this coming week. The patient's workup in the emergency department does not reveal any acute abnormality that would necessitate admission to the hospital or acute surgical consultation. Currently the patient appears appropriate for discharge and ongoing outpatient management. I discussed warning signs and recommended returning for any worsening or any concerns. - Consults Consults: Other Departure - Departure Disposition: 01 Home, Self Care Clinical Impression: Vaginal bleeding, Pelvic pain Condition: Good Instructions: ED Bleed Irregular Vaginal, Control IUD Follow-Up: Carlito Yo MD [Provider Admit Priv/Credential] - (Please follow-up as scheduled) Comments: Please return for any worsening or any concerns
[2018-12-02 17:18] LABS: BILIRUBIN,URINE NEGATIVE (NEGATIVE); GLUCOSE, URINE (UA) NEGATIVE (NEGATIVE); KETONES,URINE (UA) NEGATIVE (NEGATIVE); LEUKOCYTE ESTERASE, URINE NEGATIVE (NEGATIVE); NITRITE,URINE NEGATIVE (NEGATIVE); OCCULT BLOOD,URINE TRACE-INTA (NEGATIVE); PROTEIN,URINE NEGATIVE (NEGATIVE); UROBILINOGEN,URINE 0.2 (NORMAL) E.U./dL (NORMAL)
[2018-12-02 17:24] LABS: CLARITY,URINE CLEAR (CLEAR); HCG UR QUAL NEGATIVE
--- NOTE | 2018-12-02 17:26 | Ultrasound Report ---
Reason: pelvin pain, vaginal bleeding Procedure Date: 12/02/2018 Accession Number: [id number] / [id number] Procedure: US - Pelvic w/Transvag+Doppler Comp CPT Code: FULL RESULT: EXAM: PELVIC ULTRASOUND EXAM DATE: 12/02/2018 05:10 PM. CLINICAL HISTORY: Pelvic pain, vaginal bleeding. COMPARISON: None. TECHNIQUE: Realtime transabdominal pelvic scan performed to identify the uterus and adnexa and as an overview of other pelvic structures, followed by transvaginal scan to provide greater detail of the uterus and adnexa, with static image documentation. FINDINGS: Uterus: 7.8 x 4.8 x 5.9 cm, volume 113 cc. Anteverted position. Normal overall size and echotexture. Masses: None. Endometrium: Obscured by IUD. Cervix: Unremarkable. Right Ovary: 4.2 x 2.8 x 3.5 cm, volume 21.4 cc. Normal echotexture and blood flow. PSV 5.83 cm/s, RI 0.55 arterial and venous blood flow present. Left Ovary: 3.1 x 2.5 x 3.4 cm, volume 13.4 cc. Normal echotexture and blood flow. PSV 10.16 cm/s, RI 0.54. Arterial and venous blood flow present. Free Fluid: None. Other: None. IMPRESSION: Endometrium obscured by IUD. No obvious intrauterine mass or fluid collection. Otherwise normal pelvic ultrasound. RADIA
== END 2018-12-02 17:44 | disposition home or self-care (01) ==
LOC: ED 14:41
DX: N93.9 Abnormal uterine and vaginal bleeding, unspecified (principal); R10.2 Pelvic and perineal pain; Z97.5 Presence of (intrauterine) contraceptive device; F17.200 Nicotine dependence, unspecified, uncomplicated
CPT/HCPCS: 36415; 76830; 76856; 80053; 81001; 81003; 81025; 83690; 85025; 87086; 93975; 99283

== ENCOUNTER 2019-05-01 01:29 | Outpatient (CLI) | payer MEDICAID | END 2019-05-01 01:30 | disposition EMS.NT | LOC: EMS 01:29 | PROVIDERS: ATTEND Surgery | DX: S01.01XA Laceration without foreign body of scalp, initial encounter (principal); Y04.2XXA Assault by strike against or bumped into by another person, initial encounter ==

== ENCOUNTER 2019-05-01 02:43 | Emergency (ER) | payer OTHER, MEDICAID ==
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
[2019-05-01] MEDS ORDERED: LIDOCAINE MPF 1%-EPI 1:200000 30 ML VIAL SUBQ STA (03:10)
[2019-05-01] MEDS ORDERED: LIDOCAINE-EPINEPH-TETRACAINE 3 ML SYRINGE TOP STA (03:10)
[2019-05-01] MEDS ORDERED: IBUPROFEN 600 MG TABLET PO STA (03:10)
[2019-05-01] MEDS ORDERED: ACETAMINOPHEN 325 MG TABLET PO STA (03:11)
[2019-05-01 04:27] VITALS: BP 122/94
== END 2019-05-01 04:32 | disposition home or self-care (01) ==
LOC: ED 02:43
DX: S01.01XA Laceration without foreign body of scalp, initial encounter (principal); S01.112A Laceration without foreign body of left eyelid and periocular area, initial encounter; Y04.2XXA Assault by strike against or bumped into by another person, initial encounter; Y92.009 Unspecified place in unspecified non-institutional (private) residence as the place of occurrence of the external cause; F17.200 Nicotine dependence, unspecified, uncomplicated
CPT/HCPCS: 12001; 12011; 99283; A9270